=== PATIENT | female | born 2000 | race Caucasian/White ===

== ENCOUNTER 2024-12-21 13:51 | Emergency (ER) | payer SELFPAY ==
[~2024-12-21] VITALS: Ht 175.3 cm; Wt 122.7 kg
[2024-12-21] MEDS ORDERED: REXULTI3 MG PO (14:04)
[2024-12-21] MEDS ORDERED: PRISTIQ50 M1 PO (14:05)
[2024-12-21 15:23] LABS: BASO # 0.04 K/mm3 (0.02-0.10); EOS # 0.57 K/mm3 (0.04-0.40); EOS % 4.9 % (1.0-5.0); HEMATOCRIT 45.4 % (37.0-47.0); HEMOGLOBIN 14.7 g/dL (12.5-16.0); LYMPH# 3.21 K/mm3 (1.50-4.00); MEAN CELL VOLUME 89 fl (78-100); MEAN CORPUSCULAR HEMOGLOBIN 29 pg (27-31); MEAN CORPUSCULAR HGB CONC 32 g/dL (33-37); MEAN PLATELET VOLUME 9.7 fl (7.4-10.4); MONO # 0.62 K/mm3 (0.20-0.80); NEU # 7.18 K/mm3 (1.40-6.50); PLATELET COUNT 352 K/mm3 (130-400); RED BLOOD COUNT 5.11 M/mm3 (4.10-5.30); RED CELL DISTRIBUTION WIDTH 11.9 % (11.5-14.5); WHITE BLOOD COUNT 11.7 K/mm3 (4.8-10.8)
[2024-12-21 15:33] LABS: ALBUMIN 4.1 g/dL (3.5-5.0)
[2024-12-21 15:35] LABS: CALCIUM 9.1 mg/dL (8.3-10.5)
[2024-12-21 15:36] LABS: TOTAL PROTEIN 7.7 g/dL (6.4-8.3)
[2024-12-21 15:38] LABS: TOTAL BILIRUBIN 0.4 mg/dL (0.2-1.2)
[2024-12-21 16:04] LABS: D-DIMER 0.36 mg/L FEU (0.15-0.50)
[2024-12-21 16:25] LABS: URINE COLOR PINK (YELLOW)
[2024-12-21 16:26] LABS: PH-URINE 8.5 (5.0 - 8.0); URINE APPEARANCE TURBID (CLEAR); URINE BILIRUBIN NEGATIVE (NEGATIVE); URINE BLOOD 3+ (NEGATIVE); URINE GLUCOSE NEGATIVE (NEGATIVE); URINE KETONE NEGATIVE (NEGATIVE); URINE LEUKOCYTE ESTERASE TRACE (NEGATIVE); URINE NITRATE NEGATIVE (NEGATIVE); URINE PROTEIN(semi-quant) 2+ (NEGATIVE)
[2024-12-21 16:27] LABS: URINE MUCUS PRESENT (NOT PRESENT)
[2024-12-21] MEDS ORDERED: BENZONATATE200 MG PO (16:41)
[2024-12-21 17:45] LABS: PH-URINE 7.5 (5.0 - 8.0); URINE APPEARANCE SLIGHTLY CLOUDY (CLEAR); URINE BILIRUBIN NEGATIVE (NEGATIVE); URINE BLOOD 2+ (NEGATIVE); URINE COLOR YELLOW (YELLOW); URINE GLUCOSE NEGATIVE (NEGATIVE); URINE KETONE NEGATIVE (NEGATIVE); URINE LEUKOCYTE ESTERASE NEGATIVE (NEGATIVE); URINE NITRATE NEGATIVE (NEGATIVE); URINE PROTEIN(semi-quant) TRACE (NEGATIVE)
[2024-12-21 18:25] VITALS: BP 123/62
== END 2024-12-21 18:25 | disposition home or self-care (01) ==
LOC: ED 13:51
PROVIDERS: Family Medicine
DX: R55 Syncope and collapse (principal); R05.9 Cough, unspecified; R06.02 Shortness of breath; E66.01 Morbid (severe) obesity due to excess calories; Z68.39 Body mass index [BMI] 39.0-39.9, adult
CPT/HCPCS: J7120

== ENCOUNTER 2025-01-05 13:13 | Emergency (ER) | payer SELFPAY ==
[~2025-01-05] VITALS: Ht 165.1 cm; Wt 122.7 kg
[~2025-01-05 13:13] MED LIST: BENZONATATE200 MG PO; PRISTIQ50 M1 PO; REXULTI3 MG PO
[2025-01-05 13:45] VITALS: BP 106/75
== END 2025-01-05 13:46 | disposition home or self-care (01) ==
LOC: ED 13:13
DX: R55 Syncope and collapse (principal); F17.290 Nicotine dependence, other tobacco product, uncomplicated